=== PATIENT | female | born 1975 | race Hispanic/Latino ===

== ENCOUNTER 2020-09-05 19:04 | Emergency (ER) | payer SELFPAY ==
[2020-09-05] MEDS ORDERED: AMIODARONE HCL 150 MG/3 ML INJ IV ONE (19:05)
[2020-09-05] MEDS ORDERED: NA CHLORIDE 0.9% 1,000 ML IV ONE (19:05)
[2020-09-05] MEDS ORDERED: EPINEPHrine 1 MG/10 ML SYR IV ONE (19:05)
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
[2020-09-05 21:29] VITALS: BP 170/10; TEMP 95; O2SAT 97
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
== END 2020-09-05 21:24 ==
LOC: ER 19:04
PROC: 5A02216 Assistance with Cardiac Output using Other Pump, Continuous (ICD-10-PCS; principal; 2020-09-05)
DX: I46.9 Cardiac arrest, cause unspecified (principal); W69.XXXA Accidental drowning and submersion while in natural water, initial encounter; Y93.11 Activity, swimming; Y92.832 Beach as the place of occurrence of the external cause
CPT/HCPCS: 92950; 96374; 96375; 99285; J0171; J0282; J7030